=== PATIENT | female | born 1950 | race Caucasian/White ===

== ENCOUNTER 2022-12-29 08:51 | Outpatient (CLI) | payer MEDICARE, OTHER, SELFPAY | END 2022-12-29 08:52 | disposition home or self-care (01) | LOC: ANHAUDIO 08:53 | PROVIDERS: PCP Family Medicine; Visit Provider Otolaryngology | DX: H90.3 Sensorineural hearing loss, bilateral (principal) | CPT/HCPCS: 92557; 92567 ==